=== PATIENT | female | born 1980 | race African-American/Black ===

== ENCOUNTER 2019-03-31 19:02 | Emergency (ER) | payer OTHER ==
[~2019-03-31] VITALS: Ht 167.6 cm; Wt 154.2 kg
[~2019-03-31 19:02] MED LIST: ANAPROX PO; IBUPROFEN 600600 M1; IBUPROFEN 600600 M1 PO; IBUPROFEN 800800 M1 PO; LORTAB 5 MG/5001 TA1 PO; MUCINEX TA600 MG/TA2 PO; NORCO 5-325 TA1 EACH PO; PRENATAL PLUS1 EAC1 PO; PRENATAL PO; TRANDATE 200 M200 M1 PO; ZESTORETIC 20-1 EAC3; ZOFRAN ODT4 MG PO; ZOFRAN4 MG PO
[2019-03-31 19:05] VITALS: BP 180/106
[2019-03-31] MEDS ORDERED: MEDROL DOSPAK21 TA1 PO (20:35)
== END 2019-03-31 20:55 | disposition home or self-care (01) ==
LOC: ER 19:02
DX: J06.9 Acute upper respiratory infection, unspecified (principal); I10 Essential (primary) hypertension; E66.01 Morbid (severe) obesity due to excess calories; Z98.890 Other specified postprocedural states; Z98.51 Tubal ligation status; Z90.89 Acquired absence of other organs

== ENCOUNTER 2019-10-28 08:25 | Emergency (ER) | payer OTHER ==
[~2019-10-28] VITALS: Ht 167.6 cm; Wt 154.2 kg
[~2019-10-28 08:25] MED LIST changes: +MEDROL DOSPAK21 TA1 PO
[2019-10-28 08:27] VITALS: BP 117/84
[2019-10-28] MEDS ORDERED: NORVASC 2.5 MG2.5 M1 PO (08:39)
[2019-10-28] MEDS ORDERED: DYRENIUM50 MG PO (08:40)
[2019-10-28] MEDS ORDERED: IBUPROFEN 800800 M1 PO (09:01)
[2019-10-28] MEDS ORDERED: SUDAFED 12 HR120 MG PO (09:01)
== END 2019-10-28 09:22 | disposition home or self-care (01) ==
LOC: ER 08:25
DX: J32.9 Chronic sinusitis, unspecified (principal); E66.01 Morbid (severe) obesity due to excess calories; Z68.43 Body mass index [BMI] 50.0-59.9, adult; Z98.890 Other specified postprocedural states; Z98.51 Tubal ligation status

== ENCOUNTER 2020-12-20 13:08 | Observation (INO) | payer OTHER ==
[~2020-12-20] VITALS: Ht 167.6 cm; Wt 159.7 kg
[~2020-12-20 13:08] MED LIST changes: +DYRENIUM50 MG PO; +NORVASC 2.5 MG2.5 M1 PO; +SUDAFED 12 HR120 MG PO
[2020-12-20 13:10] VITALS: BP 169/107
[2020-12-20 14:04] LABS: BASOPHILS 0.7 % (0.0-2.0); EOSINOPHILS 1.9 % (0.0-3.0); HEMATOCRIT 36.8 % (37.0-47.0); HEMOGLOBIN 12.5 gm/dL (12.0-15.0); LYMPHOCYTES 30.8 % (24.0-44.0); MCH 32.2 pg (26.0-34.0); MCHC 33.9 g/dL (28.0-37.0); MCV 94.9 fL (80.0-100.0); PLATELET COUNT 202 thou/uL (150-400); POLYS 58.6 % (36.0-66.0); RBC 3.88 mil/uL (4.20-5.00); RDW 12.5 % (10.5-14.5); WBC 5.2 thou/uL (4.0-11.0)
[2020-12-20 14:14] LABS: CALCIUM 9.9 mg/dL (8.5-10.1); CREATININE 1.1 mg/dL (0.6-1.0); POTASSIUM 3.6 mmol/L (3.5-5.1)
[2020-12-20 14:24] LABS: ALBUMIN 3.3 g/dL (3.4-5.0); TOTAL BILIRUBIN 0.5 mg/dL (0.2-1.0)
[2020-12-20] MEDS ORDERED: AMLODIPINE BESY10 MG PO (15:52)
[2020-12-21 03:02] LABS: ABSOLUTE NEUTROPHILS 2.7 thou/uL (1.4-8.2); BASOPHILS 0.3 % (0.0-2.0); EOSINOPHILS 2.9 % (0.0-3.0); HEMATOCRIT 37.1 % (37.0-47.0); HEMOGLOBIN 12.7 gm/dL (12.0-15.0); LYMPHOCYTES 41.3 % (24.0-44.0); MCH 32.8 pg (26.0-34.0); MCHC 34.2 g/dL (28.0-37.0); MCV 95.8 fL (80.0-100.0); MONOCYTES 8.4 % (1.0-8.0); PLATELET COUNT 200 thou/uL (150-400); POLYS 47.1 % (36.0-66.0); RBC 3.87 mil/uL (4.20-5.00); RDW 12.4 % (10.5-14.5); WBC 5.8 thou/uL (4.0-11.0)
[2020-12-21 03:26] LABS: CHOLESTEROL 138 mg/dL (<200); HDL CHOLESTEROL 40 mg/dL (>40); LDL CHOLESTEROL 81 mg/dL (<100); TC:HDL 3.5 Ratio (Not establshd); TRIGLYCERIDE 89 mg/dL (<150); VLDL 18 mg/dL (<40)
[2020-12-21 03:33] LABS: CALCIUM 9.3 mg/dL (8.5-10.1); MAGNESIUM 1.8 mg/dL (1.8-2.4); POTASSIUM 3.5 mmol/L (3.5-5.1)
[2020-12-21 03:45] LABS: SERUM ASSESSMENT Clear
[2020-12-21 05:02] VITALS: BP 152/89
[2020-12-21 06:00] VITALS: BP 161/93
[2020-12-21 07:15] VITALS: BP 162/85
[2020-12-21 11:20] VITALS: BP 140/91
--- NOTE | 2020-12-21 13:45 | 2DMMODE ---
[facility] [place] [address] 2 D/M-MODE ECHOCARDIOGRAM Name: YASIR SELLERS Room #: 208-P ADM IN M.R.#: [id number] Admission: 12/20/20 Attend Phys: Mark Swartz MD Discharge: Date of : 76 Report #: [id number] THIS REPORT FOR: cc: Rafael Merrill James A. DO Lundgren, Craig H. MD [facility] ~ APPROVED REPORT Study performed: 12/21/2020 12:47:24 EXAM: Comprehensive 2D, Doppler, and color-flow Echocardiogram Patient Location: Bedside Room #: 208 Status: routine BSA: 2.54 HR: 68 bpm BP: 140/91 mmHg Rhythm: NSR Other Information Study Quality: Technically Difficult Technically limited study due to body habitus. Indications Elevated Troponin Chest Pain Hypertension/HDD 2D Dimensions IVSd: 12.84 (7-11mm) LVOT Diam: 23.97 (18-24mm) LVDd: 42.86 mm PWd: 14.31 (7-11mm) Ascending Ao: 32.12 (22-36mm) LVDs: 28.30 (25-40mm) Left Atrium: 31.79 (27-40mm) Aortic Root: 29.77 mm IVC: 13.00 mm Aortic Valve AoV Peak Tam.: 1.23 m/s AO Peak Gr.: 6.33 mmHg LVOT Max P.55 mmHg LVOT Max V: 0.94 m/s TIFFANY Vmax: 3.45 cm2 Mitral Valve E/A Ratio: 1.4 [facility] [address] [place] [address] 2 D/M-MODE ECHOCARDIOGRAM Name: YASIR SELLERS Room #: 208-P [facility]#: [id number] Admission: 12/20/20 Attend Phys: Mark Swartz MD Discharge: Date of : 76 Report #: [id number] MV Decel. Time: 232.39 ms MV E Max Tam.: 0.71 m/s MV A Tam.: 0.50 m/s MV PHT: 67.39 ms IVRT: 124.57 ms Pulmonary Valve PV Peak Tam.: 1.04 m/s PV Peak Gr.: 4.35 mmHg Pulmonary Vein P Vein S: 0.48 m/s P Vein A: 0.20 m/s P Vein D: 0.30 m/s P Vein A Dur.: 110.7 msec P Vein S/D Ratio: 1.60 Left Ventricle The left ventricle is normal size. There is normal LV segmental wall motion. Mild concentric left ventricular hypertrophy. Left ventricular systolic function is normal. The left ventricular ejection fraction is within the normal range. LVEF is 60-65%. Moderate diastolic dysfunction Right Ventricle The right ventricle is normal size. The right ventricular systolic function is normal. Atria The left atrium size is normal. The right atrium size is normal. Aortic Valve The aortic valve is normal in structure. No aortic regurgitation is present. There is no aortic valvular stenosis. Mitral Valve The mitral valve is normal in structure. There is no mitral valve regurgitation noted. No evidence of mitral valve stenosis. Tricuspid Valve The tricuspid valve is normal in structure. There is no tricuspid valve regurgitation noted. Pulmonic Valve The pulmonary valve is normal in structure. There is no pulmonic valvular regurgitation. Great Vessels [facility] [place] [address] 2 D/M-MODE ECHOCARDIOGRAM Name: YASIR SELLERS Room #: 208-P ADM IN M.R.#: [id number] Admission: 12/20/20 Attend Phys: Mrak Swartz MD Discharge: Date of : 76 Report #: [id number] The aortic root is normal in size. IVC is normal in size and collapses >50% with inspiration. Pericardium There is no pericardial effusion. <Conclusion> Left ventricular systolic function is normal. There is normal LV segmental wall motion. LVEF is 60-65%. Mild concentric LVH Moderate diastolic dysfunction The aortic valve is normal in structure. No aortic regurgitation or stenosis The mitral valve is normal in structure. No mitral valve regurgitation Pulmonary artery pressure could not be reliably ascertained. There is no pericardial effusion. <ELECTRONICALLY SIGNED> By: Jean Crocker MD, [facility] 12/21/20 1345 1345 1345 Jean Crocker MD, [facility] /INF
[2020-12-21] MEDS ORDERED: LORAZEPAM 1 MG T1 MG PO (14:36)
[2020-12-21] MEDS ORDERED: TRIAMTERENE-HC1 EAC1 PO (14:36)
[2020-12-21] MEDS ORDERED: AMBIEN 5 MG TABL5 M1 PO (14:36)
[2020-12-21] MEDS ORDERED: PROTONIX 20 MG20 M1 PO (14:36)
[2020-12-21] MEDS ORDERED: ACETAMINOPHEN325 M1 PO (14:36)
[2020-12-21 15:28] VITALS: BP 140/91
--- NOTE | 2020-12-21 15:44 | NUR ---
ASSUMED CARE SHIFT CHANGE. VSS DENIES CP. PT STATES READY TO GO HOME. UP ADLIB DAPHNE WELL. O2 SATS WNL RA. ECHO THIS SHIFT-REFER TO RESULTS. DC ORDERS. DISCUSSED WITH PT COMMUNICATES UNDERSTANDING. IV REMOVED TELE REMOVED. PT LEFT WITH ALL BELONGINGS.
--- NOTE | 2020-12-21 16:11 | EKG ---
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 : 1980 Requested By: Leeann Mathis Order Number: [id number] MD: Dony Del Cid Measurements Intervals Mcdougal Rate: 81 P: 37 KS: 164 QRS: 41 QRSD: 64 T: -17 QT: 438 QTc: 509 Interpretive Statements Sinus rhythm Probable left atrial enlargement Borderline T abnormalities, diffuse leads Prolonged QT interval Compared to ECG 04/25/2014 13:09:29 T-wave abnormality now present Prolonged QT interval now present Electronically Signed On 12-21-2020 16:10:54 CDT by Dony Del Cid [email or web address] <ELECTRONICALLY SIGNED> By: Dony Del Cid MD, FAC 12/21/20 1610 1313 1313 Dony Del Cid MD, [facility] /EPI
== END 2020-12-21 15:35 | disposition home or self-care (01) ==
LOC: ER 13:08 → 2N 15:17 → EROBS 15:17 → 2N 12-21 05:22
PROVIDERS: Nurse Practitioner; Nurse Practitioner Family; ADMIT Internal Medicine; ATTEND Internal Medicine
DX: R07.89 Other chest pain (principal); I21.4 Non-ST elevation (NSTEMI) myocardial infarction; N17.9 Acute kidney failure, unspecified; Z20.822 Contact with and (suspected) exposure to COVID-19; K21.9 Gastro-esophageal reflux disease without esophagitis; F41.1 Generalized anxiety disorder; I16.0 Hypertensive urgency; E66.01 Morbid (severe) obesity due to excess calories; I10 Essential (primary) hypertension; Z90.89 Acquired absence of other organs; Z79.899 Other long term (current) drug therapy; Z91.14 Patient's other noncompliance with medication regimen; Z68.43 Body mass index [BMI] 50.0-59.9, adult

== ENCOUNTER → 2021-04-30 | Outpatient (CLI) | payer OTHER ==
[~2021-04-30] MED LIST changes: +ACETAMINOPHEN325 M1 PO; +AMBIEN 5 MG TABL5 M1 PO; +AMLODIPINE BESY10 MG PO; +LORAZEPAM 1 MG T1 MG PO; +PROTONIX 20 MG20 M1 PO; +TRIAMTERENE-HC1 EAC1 PO
== END ==
LOC: ULTRA 15:21
PROVIDERS: ATTEND Nurse Practitioner
DX: N83.202 Unspecified ovarian cyst, left side (principal); D25.9 Leiomyoma of uterus, unspecified; R10.2 Pelvic and perineal pain